=== PATIENT | female | born 1980 | race Two or more races ===

== ENCOUNTER 2019-02-09 07:02 | Day surgery (SDC) | payer OTHER | END 2019-02-09 13:11 | disposition home or self-care (01) | LOC: AMB-ENDOS 07:02 | DX: D12.3 Benign neoplasm of transverse colon (principal) ==

== ENCOUNTER 2020-10-10 08:20 | Day surgery (SDC) | payer OTHER | END 2020-10-10 14:25 | disposition home or self-care (01) | LOC: AMB-ENDOS 08:20 | PROVIDERS: ATTEND Surgery | DX: D12.3 Benign neoplasm of transverse colon (principal); Z20.822 Contact with and (suspected) exposure to COVID-19 ==